=== PATIENT | female | born 1995 | race Caucasian/White ===

== ENCOUNTER → 2021-08-06 16:54 | Outpatient (BNVA) | payer SELFPAY | PROVIDERS: Family Provider Family Medicine; Visit Provider Family Medicine | DX: Z20.828 Contact with and (suspected) exposure to other viral communicable diseases (principal) | CPT/HCPCS: 87635 ==

== ENCOUNTER → 2023-01-21 12:02 | Outpatient (BNVA) | payer OTHER, BC, SELFPAY | PROVIDERS: Family Provider Family Medicine; PCP Family Medicine; Visit Provider Family Medicine | DX: Z76.89 Persons encountering health services in other specified circumstances (principal); R63.5 Abnormal weight gain; Z71.3 Dietary counseling and surveillance; E83.52 Hypercalcemia | CPT/HCPCS: 80053; 80061; 82306; 84439; 84443; 85025; 86803; 87806 ==

== ENCOUNTER 2024-11-06 11:24 | Emergency (ER) | payer BC, MEDICAID, SELFPAY ==
[2024-11-06 11:30] VITALS: BP 134/93; PULSE 97; RESP 18; TEMP 36.8; O2SAT 97; BMI 34.9
--- NOTE | 2024-11-06 11:32 | USR_ITS ---
PROCEDURE INFORMATION: Exam: US Abdomen, Limited; Right Upper Quadrant Exam date and time: 11/06/2024 12:32 PM Age: 29 years old Clinical indication: Abdominal pain; Localized; Right upper quadrant (ruq); Additional info: Right upper quadrant pain, concern for cholecystitis TECHNIQUE: Imaging protocol: Real time ultrasound of the abdomen with image documentation. Limited exam focused on the right upper quadrant. COMPARISON: US OB >= 14 weeks fetus [id number] 05/19/2018 11:16 AM FINDINGS: Liver: Normal. No masses. Normal portal vein Gallbladder: Gallstones are seen. No wall thickening or edema. Biliary ducts: Normal. No stones. No dilation. Pancreas: Obscured by overlying bowel. Right kidney: Normal. No mass. No hydronephrosis. US/US gall bladder [id number] IMPRESSION: 1. Cholelithiasis with no gallbladder wall thickening or edema. 2. Otherwise unremarkable exam.
[2024-11-06 11:38] LABS: Basophils # 0.1 10^3/uL (0.0-0.1); Basophils % 0.5 %; Eosinophils # 0.1 10^3/uL (0.0-0.8); Eosinophils % 0.4 %; Hematocrit 44.6 % (36-47); Lymphocytes # 1.5 10^3/uL (0.8-4.8); Lymphocytes % 12.2 %; Mean Corpuscular Hemoglobin 28.9 pg (27-33); Mean Corpuscular Volume 87.8 fl (85-98); Mean Platelet Volume 10.5 fL (7.4-10.4); Monocytes # 0.7 10^3/uL (0.2-0.9); Monocytes % 5.4 %; Neutrophils # 10.02 10^3/uL (1.8-7.7); Neutrophils % 81.2 %; Nucleated Red Blood Cells % 0 %; Platelet Count 361 10^3/cmm (157-399); Red Blood Count 5.08 10^6/uL (3.85-5.65); Red Cell Distribution Width 12.2 % (12.1-15.1); White Blood Count 12.33 10^3/uL (3.29-11.43)
[2024-11-06] MEDS: ketorolac 30 mg/mL INJ IVP (11:39)
[2024-11-06] MEDS: ondansetron hcl ODT 4 mg Tab PO (11:39)
[2024-11-06] MEDS: sodium chloride 0.9% 1,000 ML 999 ML IV (11:39)
[2024-11-06 11:55] LABS: Alanine Aminotransferase 13 U/L (0-33); Albumin Level 4.4 g/dL (3.5-5.2); Alkaline Phosphatase 102 U/L (35-105); Aspartate Amino Transferase 14 U/L (0-32); Blood Urea Nitrogen 11 mg/dL (6-20); Calcium 9.1 mg/dL (8.5-10.5); Carbon Dioxide 23 mmol/L (22-29); Chloride 103 mmol/L (98-107); Creatinine Clr Calc Pharmacy 118.9641; Globulin 3.8 g/dL (1.3-4.6); Glomerular Filtration Rate 97.6 mL/min (90-130); Glucose 113 mg/dL (65-115); Lipase 28 U/L (13-60); Osmolality Calculated 284 mOsm/kg (285-295); Sodium 137 mmol/L (136-145); Total Bilirubin 0.5 mg/dL (0.15-1.2); Total Protein 8.2 g/dL (6.6-8.7)
--- NOTE | 2024-11-06 11:55 | ED_ITS ---
HPI - Abdominal Pain 2 General: Chief Complaint: Abdominal Pain Stated Complaint: abd pain Time Seen by Provider: 11/06/24 11:29 History of Present Illness: 29-year-old female with no significant p ast medical history who presents emergency room with right upper quadrant pain, nausea and vomiting. She said this started about 9:00 last night. Severe pain. Worse with palpation. She says it does improve when she vomits. No history of any abdominal surgeries in the past. No fever or chills. No dysuria. Related Data Home Medications ?Medication ?Instructions ?Recorded ?Confirmed phentermine 37.5 mg tablet 37.5 mg PO QAM 11/06/2407/21 Previous Rx's ?Medication ?Instructions ?Recorded diclofenac sodium 50 mg 50 mg PO BID PRN pain #14 ta bs 11/06/24 tablet,delayed release hydrocodone 5 mg-acetaminophen 325 1 tab PO Q6H PRN pa in #20 tabs 11/06/24 mg tablet ondansetron 8 mg disintegrating 8 mg PO Q6H #14 tabs 0 11/06/24 tablet polyethylene glycol 3350 17 17 g PO DAILY #510 grams 0 11/06/24 gram/dose oral powder (Miralax) Allergies Allergy/AdvReac Type Severity Reaction Status Date / Time No Known Allergies Allergy Verified 11/06/24 11:36 Review of Systems 2 Narrative: Constitutional symptoms: Negative except as documented in HPI. Skin symptoms: Negative except as documented in HPI. Eye symptoms: Negative except as documented in HPI. ENMT symptoms: Negative except as documented in HPI. Respiratory symptoms: Negative except as documented in HPI. Cardiovascular symptoms: Negative except as documented in HPI. Gastrointestinal symptoms: Negative except as documented in HPI. Genitourinary symptoms: Negative except as documented in HPI. Musculoskeletal symptoms: Negative except as documented in HPI. Neurologic symptoms: Negative except as documented in HPI. Psychiatric symptoms: Negative except as documented in HPI. Endocrine symptoms: Negative except as documented in HPI. PFSH ED 2 PFSH: Surgical History (Updated 07/22/24 @ 09:39 by Isaac Araujo MD) H/O breast augmentation December 2023 Social History Smoking and tobacco/nicotine status: never used tobacco/nicotine Second hand smoke exposure: No Alcohol intake: never Substance/Drug Use: never Adopted: No Caregiver/support person: No Lives independently: Yes Marital status: Number of children: 4 Highest education level completed: High School Graduate service: No Current occupational status: employed Current occupation: ER - Unit Cordinater Current occupational exposures/hazards: No Pets and animals: No Sexually active: Yes Are you practicing safe sex: Yes Do you think of yourself as: Straight/Heterosexual Current gender identity: Female Special ginger needs: No Agree to transfusion: No Female Reproductive History: Spontaneous abortions: No Physical Exam 2 Narrative: EXAM NARRATIVE: General: Alert, no acute distress. Skin: Warm, dry. Head: Normocephalic, atraumatic. Neck: Supple, trachea midline. Eye: Extraocular movements are intact. Ears, nose, mouth and throat: Tacky oral mucosa Cardiovascular: Regular, Normal peripheral perfusion. Respiratory: Lungs are clear to auscultation, respirations are non-labored, breath sounds are equal, Symmetrical chest wall expansion. Gastrointestinal: Soft, moderate right upper quadrant tenderness to palpation, Non distended Musculoskeletal: Normal ROM, no deformity. Neurological: Alert and oriented, No focal neurological deficit observed. Psychiatric: Cooperative, appropriate mood & affect. Course 2 Vital Signs: Vital signs: Vital Signs Temperature 98.2 F 11/06/24 11:30 Pulse Rate 85 11/06/24 12:52 Respiratory Rate 18 11/06/24 12:02 Blood Pressure 123/70 11/06/24 12:52 Pulse Oximetry 95 11/06/24 12:52 Oxygen Delivery Me thod Room Air 11/06/24 12:02 MDM - Abdominal Pain Medical Decision Making Differential diagnosis for patient presenting with right upper quadrant abdominal pain including but not limited to and based on the above HPI, review of systems and physical exam: Cholelithiasis or cholecystitis. Hepatitis. Diverticulitis. Constipation. Ureterolithiasis. Urinary tract infection. Appendicitis. colitis. small bowel obstruction. crohn's flare. pancreatitis. gastritis. peptic ulcer. Aortic disection. Workup including imaging and lab work replaced based on the above differential, history and exam to evaluate differential diagnosis Lab Review: Laboratory results were reviewed and interpreted by myself the emergency room physician. Mild leukocytosis. No anemia. No renal failure. Ultrasound of the gallbladder: Cholelithiasis with no cholecystitis. No gallbladder wall thickening or edema. Otherwise unremarkable exam. This was reviewed and interpreted by myself the emergency room physician. I also reviewed the radiology report. I reviewed the patient's medical record. Reexamination: Patient says she feels quite a bit better with Toradol and Zofran. Pain is mostly improved. We discussed low-fat diet and follow-up with general surgery. Also to return to the emergency room if pain worsens or is uncontrolled. No increased work of breathing. Altered mental status. Assessment and plan: Cholelithiasis Biliary colic Dehydration Nausea and vomiting ? IV Zofran, IV Toradol. - Discharged home - Discussed plan with patient. Answered any questions. - Evaluation and treatment of this problem were appropriate in the emergency setting. Lab Data 11/06/24 11:33 11/06/24 11:33 Labs/Radiology: Radiology Impressions Gallbladder Ultrasound 11/06/24 11:32 IMPRESSION: 1. Cholelithiasis with no gallbladder wall thickening or edema. 2. Otherwise unremarkable exam. Laboratory Results WBC 12.33 10^3/uL (3.29-11.43) H 11/06/24 11:33 RBC 5.08 10^6/uL (3.85-5.65) 11/06/24 11:33 Hgb 14.70 g/dL (11.27-16.99) 11/06/24 11:33 Hct 44.6 % (36-47) 11/06/24 11:33 MCV 87.8 fl (85-98) 11/06/24 11:33 MCH 28.9 pg (27-33) 11/06/24 11:33 MCHC 33.0 g/dL (30-55) 11/06/24 11:33 RDW 12.2 % (12.1-15.1) 11/06/24 11:33 Plt Count 361 10^3/cmm (157-399) 11/06/24 11:33 MPV 10.5 fL (7.4-10.4) H 11/06/24 11:33 Neut % (Auto) 81.2 % 11/06/24 11:33 Lymph % (Auto) 12.2 % 11/06/24 11:33 Titus % (Auto) 5.4 % 11/06/24 11:33 Eos % (Auto) 0.4 % 11/06/24 11:33 Baso % (Auto) 0.5 % 11/06/24 11:33 Neut # (Auto) 10.02 10^3/uL (1.8-7.7) H 11/06/24 11:33 Lymph # (Auto) 1.5 10^3/uL (0.8-4.8) 11/06/24 11:33 Titus # (Auto) 0.7 10^3/uL (0.2-0.9) 11/06/24 11:33 Eos # (Auto) 0.1 10^3/uL (0.0-0.8) 11/06/24 11:33 Baso # (Auto) 0.1 10^3/uL (0.0-0.1) 11/06/24 11:33 Nucleated RBC % (auto) 0 % 11/06/24 11: Nucleated RBCs # 0.0 /100WBC 11/06/24 11:33 Sodium 137 mmol/L (136-145) 11/06/24 11:33 Potassium 4.0 mmol/L (3.5-5.1) 11/06/24 11:33 Chloride 103 mmol/L (98-107) 11/06/24 11:33 Carbon Dioxide 23 mmol/L (22-29) 11/06/24 11:33 Anion Gap 15.0 (5-19) 11/06/24 11:33 BUN 11 mg/dL (6-20) 11/06/24 11:33 Creatinine 0.7 mg/dL (0.5-0.9) 11/06/24 11:33 GFR Calculation 97.6 mL/min (90-130) 11/06/24 11:33 Glucose 113 mg/dL (65-115) 11/06/24 11:33 Calculated Osmolality 284 mOsm/kg (285-295) L 11/06/24 11:33 Calcium 9.1 mg/dL (8.5-10.5) 11/06/24 11:33 Total Bilirubin 0.5 mg/dL (0.15-1.2) 11/06/24 11:33 AST 14 U/L (0-32) 11/06/24 11:33 ALT 13 U/L (0-33) 11/06/24 11:33 Alkaline Phosphatase 102 U/L (35-105) 11/06/24 11:33 Total Protein 8.2 g/dL (6.6-8.7) 11/06/24 11:33 Albumin 4.4 g/dL (3.5-5.2) 11/06/24 11:33 Globulin 3.8 g/dL (1.3-4.6) 11/06/24 11:33 Lipase 28 U/L (13-60) 11/06/24 11:33 All radiology interpretation(s) finalized by discharge Discharge Plan Discharge Patient Disposition: Home Clinical Impression: Biliary colic, Abdominal pain, Cholelithiasis, Nausea and vomiting, Dehydration Condition: Stable Prescriptions: New hydrocodone-acetaminophen 5-325 mg tablet 1 tab PO Q6H PRN (Reason: pain) Qty: 20 0RF ondansetron 8 mg tablet,disintegrating 8 mg PO Q6H Qty: 14 0RF Rx Instructions: Take 1/2-1 tab every 6 hours as needed for nausea and vomiting diclofenac sodium 50 mg tablet,delayed release (DR/EC) 50 mg PO BID PRN (Reason: pain) Qty: 14 0RF polyethylene glycol 3350 [Miralax] 17 gram/dose powder 17 g PO DAILY Qty: 510 0RF Rx Instructions: Take 1 scoop daily while taking pain medications. No Action phentermine 37.5 mg tablet 37.5 mg PO QAM Discharge Orders: Discharge ED (Routine); Ordered 11/06/24 Ordered By: Maricel Castellano Referrals: Jus Kilgore MD [Physician] - 4-7 days (Please call for follow-up appointment with general surgery.) Tara Hermosillo MD [Family Provider] - Isaac Araujo MD [Primary Care Provider] - Discharge Diet: As Directed Discharge Activity: Increase activity as tolerated Patient Instructions: Biliary Colic (ED), Low Fat Diet (ED), Abdominal Pain (ED), Opioid Safety, Pain Management Activity Restrictions/Additional Instructions: Thank you for choosing [facility] for your healthcare needs today. Please realize this is an emergency room and that we are providing you with a medical screening exam and this may not be complete and all inclusive of all the testing and or work up that you may need to determine your ailment or severity of your illness. You have been screened and evaluated and felt safe for discharge. Health conditions do change or evolve sometimes and as such it is important that you follow up with your Primary Doctor to be re checked, 3-5 days is a general good time frame for follow up. You are always welcome to return to the ED for re assessment if your symptoms are worsening or you have new concerns Print Language: Hebrew Coding Level of Care Code ED Chief Librarian Circulation Department for [facility]
[2024-11-06 12:02] VITALS: BP 115/42; PULSE 86; RESP 18; O2SAT 96
[2024-11-06 12:52] VITALS: BP 123/70; PULSE 85; O2SAT 95
[2024-11-06 13:12] VITALS: BP 112/57; PULSE 85; O2SAT 100
== END 2024-11-06 13:12 | disposition home or self-care (01) ==
PROVIDERS: Emergency Provider Emergency Medicine; PCP Family Medicine
DX: K80.70 Calculus of gallbladder and bile duct without cholecystitis without obstruction (principal); R10.9 Unspecified abdominal pain; R11.2 Nausea with vomiting, unspecified; E86.0 Dehydration
CPT/HCPCS: 76705; 80053; 83690; 85025; 96374; 99284; J1885; J7030; Q0162

== ENCOUNTER 2024-12-22 06:27 | Day surgery (SDC) | payer BC, MEDICAID, SELFPAY ==
[2024-12-22] VITALS (11 sets, daily range): BP systolic 102–135; BP diastolic 60–91; PULSE 85–95; RESP 16–18; TEMP 36.2–36.8; O2SAT 90–100; BMI 33.8
--- NOTE | 2024-12-22 06:57 | W.PM.OPSUD ---
Surgery/Procedure H&P Update DATE OF PROCEDURE: December 22, 2024 DATE H&P PERFORMED: 12/13/24 H&P UPDATE INFORMATION: I have reviewed H&P completed within last 30 days, I have examined patient prior to procedure and No changes to prior documentation CHANGES TO PREVIOUS DOCUMENTATION: I have discussed the risks and benefits of laparoscopic cholecystectomy and patient agrees to proceed. Patient understands that the risks of the surgery include postoperative infection, bleeding, bile leak, incisional hernia, and in very rare instances injuries to the bowel, common bile duct, portal vein, and liver failure. PLANNED PROCEDURE: Operation Date: 12/22/24 08:00 Proposed Procedures p Laparoscopic Cholecystectomy 49136 K82.9(Not Applicable) - Jus Kilgore MD
[2024-12-22 07:10] LABS: OR HCG Qualitative Urine Negative (Negative)
[2024-12-22] MEDS: sodium chloride 0.9% 1,000 ML 30 ML IV (07:12)
--- NOTE | 2024-12-22 07:12 | P.ANESASSM_ITS ---
Pre-Anesthetic Assessment Height/Weight: Height 1.57 m Weight 83.915 kg Temp Pulse Resp BP Pulse Ox O2 Del Method 98.2 F 95 18 135/60 98 Room Air 12/22/24 06:45 12/22/24 06:45 12/22/24 06:45 12/22/24 06:45 12/22/24 06:45 12/22/24 06:45 Operation Date: 12/22/24 08:00 Proposed Procedures p Laparoscopic Cholecystectomy 66502 K82.9(Not Applicable) - Jus Kilgore MD Familial anesthetic complications: None Was Beta Mikhail taken within 24 hours: N/A Was Clonidine taken within 24 hours: N/A Last intake: Intake Last Liquid Date 12/21/24 Last Liquid Time 22:30 Last Solid Date 12/21/24 Last Solid Time 19:30 Social No alcohol and No tobacco Exam alert, oriented x 3, clear to auscultation bilaterally and regular rate & rhythm Airway Mallampati: Class II Dentition: full Metabolic Morbid Obesity Anesthetic Plan ASA status: 2 Anesthesia: General Risk of > 500 ml blood loss (7ml/kg in children): No Medications/Allergies Home Medications ?Medication ?Instructions ?Recorded ?Confirmed ?Last Taken ?Type diclofenac sodium 50 mg 50 mg PO BID PRN pain #14 ta bs 11/06/24 12/22/24 3 Weeks Ago Rx tablet,delayed release ~12/01/24 hydrocodone 5 mg-acetaminophen 325 1 tab PO Q6H PRN pa in #20 tabs 11/06/24 12/22/24 3 Weeks Ago Rx mg tablet ~12/01/24 ondansetron 8 mg disintegrating 8 mg PO Q6H #14 tabs 0 11/06/24 12/22/24 3 Weeks Ago Rx tablet ~12/01/24 phentermine 37.5 mg tablet 37.5 mg PO QAM 11/06/24 1 Month Ago History ~11/22/24 Allergies Allergy/AdvReac Type Severity Reaction Status Date / Time No Known Allergies Allergy Verified 12/22/24 06:38 [facility] Anesthesia Surgical History H/O breast augmentation December 2023 Social History Smoking and tobacco/nicotine status: never used tobacco/nicotine Second hand smoke exposure: No Alcohol intake: never Substance/Drug Use: never Adopted: No Caregiver/support person: No Lives independently: Yes Marital status: Number of children: 4 Highest education level completed: High School Graduate service: No Current occupational status: employed Current occupation: ER - Unit Cordinater Current occupational exposures/hazards: No Pets and animals: No Sexually active: Yes Are you practicing safe sex: Yes Do you think of yourself as: Straight/Heterosexual Current gender identity: Female Special ginger needs: No Agree to transfusion: No Female Reproductive History Spontaneous abortions: No
[2024-12-22] MEDS: ceFAZolin 2,000 mg SDV 2000 MG IVP (07:30)
[2024-12-22] MEDS: lidocaine-epi 1% 20 mL INJ INJECTION (07:56)
--- NOTE | 2024-12-22 08:18 | P.OP_ITS ---
Operative Report Date of procedure: December 22, 2024 Pre-op diagnosis: Symptomatic cholelithiasis Post-op diagnosis: same Post-op findings: Unremarkable gallbladder. Procedure done: Laparoscopic cholecystectomy Implants: NA Specimens removed/disposition: Gallbladder sent to pathology Pathology: Gallbladder sent to pathology Surgeon: Jus Kilgore MD Spray Drier Operator Helper: N/A Anesthesia: General Estimated blood loss (mL): 10 Complications: N/A Findings: Unremarkable gallbladder. Condition: stable Disposition: same day Brief History: 29-year-old female who presented with symptomatic cholelithiasis. Discussed risk and benefits and patient agreed to proceed with laparoscopic cholecy stectomy possible open. Procedure: I discussed the risks and benefits of laparoscopic cholecystectomy, and obtained consent prior to proceeding to the operating room. SCDs were utilized. Prophylactic antibiotics were administered. General anesthesia was induced. The patient was placed supine, and was prepped and draped in the usual sterile fashion. Insufflation to 15mmHg was achieved using a Veress needle at Wilson's point. A 5mm optiview trocar was placed at the umbilicus under direct visualization. The left upper quadrant was inspected, and no injuries were noted. Two 5mm ports were placed in the right upper quadrant, and a 12mm working port was placed in the epigastrium. The gallbladder was then retracted cephalad through the lateral RUQ port, and the infundibulum grabbed through the medial RUQ port and retracted laterally. The gallbladder was not inflammed consistent with the diagnosis of symptomatic cholelithiasis. I proceeded to score the peritoneum over the medial aspect of the gallbladder using a laparoscopic hook with electrocautery. Then the infundibulum was retracted medially in order to score the peritoneum over the lateral aspect of the galbladder. Using a combination of energy and blunt dissection with the [place] and a Kittner dissector, the cystic artery and cystic duct were dissected. I then proceeded to dissect the cystic plate in order to to achieve the critical view of safety (CVS - hepatocystic triangle cleared of fat and fibrous tissue, lower one-third of the gallbladder was from the liver to expose the cystic plate, two and only two structures were seen entering the gallbladder). The cystic artery and the cystic duct were clipped three times (leaving two clips on the proximal end of both structures). I then proceeded to dissect the gallbladder off the liver using hook electrocautery. The specimen was placed in an endocatch bag and retrieved from the abdomen through the port on the epigastrium. I then inspected the gallbladder fossa and confirmed adequate hemostasis and the absence of any bile leaks. The gallbladder fossa was then cauterized again. Prior to ending the laparoscopic portion, I examined the rest of the abdomen and did not find any abnormalities or injuries. The abdomen was then desufflated. Skin was closed using 4-0 monocryl and surgical glue. The patient woke up from anesthesia and transferred to PACU without any complications.
--- NOTE | 2024-12-22 09:45 | ANE.PACU2 ---
Inpatient post-anesthesia follow up: Airway intact: Yes Vital signs: Temperature 97.2 F Pulse Rate 87 Respiratory Rate 18 Blood Pressure 102/82 Pulse Oximetry 99 Oxygen Delivery Me thod Room Air Oxygen Flow Rate 2 Fraction of Inspir ed Oxygen Hydration adequate: Yes Nausea and vomiting: No Pain level: 1 Mental status: Baseline
== END 2024-12-22 09:46 | disposition home or self-care (01) ==
PROVIDERS: Anesthesiology; PCP Family Medicine; Visit Provider Student in an Organized Health Care Education/Training Program
PROC: 0FT44ZZ Resection of Gallbladder, Percutaneous Endoscopic Approach (ICD-10-PCS; CPT 47562; principal; 2024-12-22 08:00)
DX: K80.10 Calculus of gallbladder with chronic cholecystitis without obstruction (principal); E66.01 Morbid (severe) obesity due to excess calories; Z68.33 Body mass index [BMI] 33.0-33.9, adult
CPT/HCPCS: 47562; 81025; 88304; A4216; J0690; J1100; J1885; J2250; J2405; J2704; J3010; J3490; J7030; J9999